=== PATIENT | female | born 1970 | race Caucasian/White ===

== ENCOUNTER 2016-02-24 19:40 | Emergency (ER) | payer BC ==
[~2016-02-24 19:40] MED LIST: ACID REDUCER 1150 MG PO; CITALOPRAM HBR10 MG PO; PEPTAMEN
== END 2016-02-24 22:05 | disposition home or self-care (01) ==
LOC: ED 19:40
DX: R10.13 Epigastric pain (principal)
CPT/HCPCS: C9113

== ENCOUNTER → 2016-02-25 | Outpatient (CLI) | payer BC | LOC: RAD 09:14 | DX: R10.13 Epigastric pain (principal) ==

== ENCOUNTER → 2016-03-17 | Outpatient (CLI) | payer BC | LOC: LAB 16:24 | DX: Z01.419 Encounter for gynecological examination (general) (routine) without abnormal findings (principal); B37.3 Candidiasis of vulva and vagina; B95.4 Other streptococcus as the cause of diseases classified elsewhere ==

== ENCOUNTER → 2016-03-18 | Outpatient (CLI) | payer BC | LOC: LAB 07:59 | DX: F41.1 Generalized anxiety disorder (principal); R53.81 Other malaise; Z01.419 Encounter for gynecological examination (general) (routine) without abnormal findings ==

== ENCOUNTER → 2016-03-23 | Outpatient (CLI) | payer BC | LOC: MAMMO 16:02 | DX: Z12.31 Encounter for screening mammogram for malignant neoplasm of breast (principal); Z01.419 Encounter for gynecological examination (general) (routine) without abnormal findings | CPT/HCPCS: G0202 ==

== ENCOUNTER → 2017-03-29 | Outpatient (CLI) | payer BC ==
[2016-02-24 22:05] VITALS: BP 136/87
[2017-03-29 08:42] LABS: EOS # 0.1 (0.04-0.40); EOS % 2.5 % (1.0-5.0); HEMATOCRIT 41.1 % (37.0-47.0); MEAN CELL VOLUME 89 fl (78-100); MEAN CORPUSCULAR HEMOGLOBIN 28 pg (27-31); MEAN CORPUSCULAR HGB CONC 32 g/dL (33-37); MEAN PLATELET VOLUME 10.5 fl (7.4-10.4); MONO # 0.3 (0.20-0.80); NEU # 2.1 (1.40-6.50); PLATELET COUNT 148 K/mm3 (130-400); RED BLOOD COUNT 4.62 M/mm3 (4.10-5.30); RED CELL DISTRIBUTION WIDTH 14.4 % (11.5-14.5); WHITE BLOOD COUNT 2.8 K/mm3 (4.8-10.8)
[2017-03-29 08:43] LABS: LYMPH# 0.4 (1.50-4.00)
[2017-03-29 08:55] LABS: ALBUMIN 3.6 g/dL (3.5-5.0); CALCIUM 10.1 mg/dL (8.4-10.2); POTASSIUM 4.5 mmol/L (3.6-5.0); TOTAL BILIRUBIN 0.6 mg/dL (0.2-1.3); TOTAL PROTEIN 6.5 g/dL (6.3-8.2)
== END ==
LOC: MAMMO 08:27 → RAD 09:15 → MAMMO 09:15
PROVIDERS: Nurse Practitioner Family
DX: Z12.31 Encounter for screening mammogram for malignant neoplasm of breast (principal); N64.89 Other specified disorders of breast; Z00.00 Encounter for general adult medical examination without abnormal findings; D64.9 Anemia, unspecified; D72.819 Decreased white blood cell count, unspecified; F41.1 Generalized anxiety disorder

== ENCOUNTER → 2017-04-06 | Outpatient (CLI) | payer BC ==
[2016-02-24 22:05] VITALS: BP 136/87
== END ==
LOC: MAMMO 12:25
DX: Z12.31 Encounter for screening mammogram for malignant neoplasm of breast (principal)

== ENCOUNTER → 2017-05-17 | Outpatient (CLI) | payer BC ==
[2016-02-24 22:05] VITALS: BP 136/87
[2017-05-17 08:07] LABS: EOS # 0.1 (0.04-0.40); HEMATOCRIT 38.7 % (37.0-47.0); HEMOGLOBIN 12.6 g/dL (12.5-16.0); MEAN CELL VOLUME 91 fl (78-100); MEAN CORPUSCULAR HEMOGLOBIN 30 pg (27-31); MEAN CORPUSCULAR HGB CONC 33 g/dL (33-37); MEAN PLATELET VOLUME 10.7 fl (7.4-10.4); MONO # 0.4 (0.20-0.80); NEU # 2.1 (1.40-6.50); PLATELET COUNT 188 K/mm3 (130-400); RED BLOOD COUNT 4.27 M/mm3 (4.10-5.30); RED CELL DISTRIBUTION WIDTH 13.8 % (11.5-14.5); WHITE BLOOD COUNT 3.6 K/mm3 (4.8-10.8)
== END ==
LOC: LAB 07:32
PROVIDERS: Nurse Practitioner Family
DX: D72.819 Decreased white blood cell count, unspecified (principal)

== ENCOUNTER → 2018-04-10 | Outpatient (CLI) | payer BC ==
[2016-02-24 22:05] VITALS: BP 136/87
[2018-04-10 08:58] LABS: EOS # 0.1 (0.04-0.40); EOS % 2.1 % (1.0-5.0); HEMOGLOBIN 12.8 g/dL (12.5-16.0); LYMPH# 1.1 (1.50-4.00); MEAN CELL VOLUME 88 fl (78-100); MEAN CORPUSCULAR HEMOGLOBIN 28 pg (27-31); MEAN CORPUSCULAR HGB CONC 32 g/dL (33-37); MEAN PLATELET VOLUME 10.5 fl (7.4-10.4); MONO # 0.4 (0.20-0.80); NEU # 1.7 (1.40-6.50); PLATELET COUNT 178 K/mm3 (130-400); RED BLOOD COUNT 4.56 M/mm3 (4.10-5.30); RED CELL DISTRIBUTION WIDTH 12.9 % (11.5-14.5); WHITE BLOOD COUNT 3.3 K/mm3 (4.8-10.8)
[2018-04-10 09:13] LABS: CALCIUM 10.2 mg/dL (8.4-10.2); POTASSIUM 4.8 mmol/L (3.6-5.0); TOTAL BILIRUBIN 0.6 mg/dL (0.2-1.3)
== END ==
LOC: LAB 08:41
PROVIDERS: Physician Assistant
DX: Z12.39 Encounter for other screening for malignant neoplasm of breast (principal); Z00.00 Encounter for general adult medical examination without abnormal findings; J30.2 Other seasonal allergic rhinitis; D72.819 Decreased white blood cell count, unspecified

== ENCOUNTER → 2018-04-24 | Outpatient (CLI) | payer BC ==
[2016-02-24 22:05] VITALS: BP 136/87
== END ==
LOC: MAMMO 07:44
DX: Z12.31 Encounter for screening mammogram for malignant neoplasm of breast (principal); D72.819 Decreased white blood cell count, unspecified; J30.2 Other seasonal allergic rhinitis

== ENCOUNTER → 2020-02-29 | Outpatient (CLI) | payer BC ==
[2016-02-24 22:05] VITALS: BP 136/87
== END ==
LOC: LAB 08:34
DX: U07.1 COVID-19 (principal)

== ENCOUNTER → 2021-09-02 | Outpatient (CLI) | payer BC ==
[2021-09-02 08:35] LABS: BASO # 0.04 K/mm3 (0.02-0.10); EOS # 0.18 K/mm3 (0.04-0.40); HEMATOCRIT 39.8 % (37.0-47.0); HEMOGLOBIN 13.2 g/dL (12.5-16.0); LYMPH# 1.08 K/mm3 (1.50-4.00); MEAN CELL VOLUME 91 fl (78-100); MEAN CORPUSCULAR HEMOGLOBIN 30 pg (27-31); MEAN CORPUSCULAR HGB CONC 33 g/dL (33-37); MEAN PLATELET VOLUME 10.3 fl (7.4-10.4); MONO # 0.25 K/mm3 (0.20-0.80); NEU # 1.43 K/mm3 (1.40-6.50); PLATELET COUNT 180 K/mm3 (130-400); RED BLOOD COUNT 4.37 M/mm3 (4.10-5.30); RED CELL DISTRIBUTION WIDTH 12.2 % (11.5-14.5)
[2021-09-02 08:42] LABS: ALBUMIN 3.7 g/dL (3.5-5.0); POTASSIUM 4.4 mmol/L (3.5-5.1)
[2021-09-02 08:43] LABS: CALCIUM 10.5 mg/dL (8.3-10.5)
[2021-09-02 08:45] LABS: TOTAL PROTEIN 6.4 g/dL (6.4-8.3)
[2021-09-02 08:46] LABS: TOTAL BILIRUBIN 0.4 mg/dL (0.2-1.2)
[2021-09-03 00:59] LABS: FOLLICLE STIMULATING HORMONE 24.8 mIU/mL (()); LUTENIZING HORMONE 7.1 mIU/mL (()); PROGESTERONE 0.7 ng/mL (())
== END ==
LOC: MAMMO 08:08
PROVIDERS: Physician Assistant
DX: Z12.31 Encounter for screening mammogram for malignant neoplasm of breast (principal); Z00.00 Encounter for general adult medical examination without abnormal findings; Z13.29 Encounter for screening for other suspected endocrine disorder; K90.9 Intestinal malabsorption, unspecified; Z13.1 Encounter for screening for diabetes mellitus; N95.1 Menopausal and female climacteric states; N64.89 Other specified disorders of breast

== ENCOUNTER → 2021-09-06 | Outpatient (CLI) | payer BC | LOC: MAMMO 07:00 | DX: N63.10 Unspecified lump in the right breast, unspecified quadrant (principal) ==

== ENCOUNTER → 2021-09-13 | Outpatient (CLI) | payer BC | LOC: RAD 06:59 | DX: N60.01 Solitary cyst of right breast (principal) ==